=== PATIENT | female | born 1995 | race Hispanic/Latino ===

== ENCOUNTER → 2017-06-28 | Outpatient (CLI) | payer BC ==
--- NOTE | 2017-06-28 16:15 | Diagnostic Imaging Report ---
PROCEDURE:X-RAY ABDOMEN - KUB COMPARISON:None. INDICATIONS:STENT PLACED 3 WEEKS AGO, RIGHT KIDNEY STONE FINDINGS: Medical devices: Right ureteral stent is present without evidence of calculus along the course. Intrauterine device is present in the pelvis. Bowel: The bowel gas pattern is normal. No dilated bowel loops. Calcifications: There are no calcifications over the renal shadows, along the expected course of the left ureter, or in the pelvis. Bones: There is increased calcific density at L5-S1 that could be the result of anterolisthesis. No focal osseous lesions. Soft tissues: Unremarkable. CONCLUSION: 1. No evidence of intrarenal or ureteral calculus by x-ray. 2. Suspected spondylolisthesis of L5-S1. This can be confirmed with lumbar spine series. 3. Medical devices as described above. Dictated by: Jesus Reyes M.D. on 06/28/2017 at 16:15 Electronically approved by: Jesus Reyes M.D. on 06/28/2017 at 16:15
== END ==
LOC: RAD 15:21
PROVIDERS: ATTEND Urology
DX: N13.30 Unspecified hydronephrosis (principal)
CPT/HCPCS: 74018

== ENCOUNTER → 2017-07-18 | Day surgery (SDC) | payer BC ==
[~2017-07-18] MED LIST: CEFAZOLIN SOD 1 GM VIAL ONE; DEXAMETHASONE SOD PHOS INJ 4 MG/ML VIAL ONE; FENTANYL CITRATE/PF 100MCG/2 ML INJ ONE; IOPAMIDOL 610MG/1ML 300 MG/ML VIAL IV ONE; LIDOCAINE HCL 2% LOCAL INJ 5 ML SDV VIAL INJ ONE; MIDAZOLAM HCL 2 MG/2 ML VIAL ONE; ONDANSETRON HCL INJ 2 MG/ML VIAL ONE; ONE DAILY WOME1 EACH; PROPOFOL IV EMULSION 10 MG/ML 20 ML VIAL ONE; SEVOFLURANE INHAL SOLN 250 ML PEN BTL ONE
--- OUTSIDE RECORDS SUMMARY | 2017-07-18 07:40 | XMS REPORT ---
Author Author [facility] Address Unknown Phone Unavailable Care Team Providers Care Casting Carrier Name Role Phone JONATHAN GAN Unavailable Unavailable Problems This patient has no known problems. Allergies, Adverse Reactions, Alerts This patient has no known allergies or adverse reactions. Medications This patient has no known medications. Results Test Description Test Time Test Comments Text Results Atomic Results Result Comments ABDOMEN-1VIEW (KUB) [place] [id number] Patient Name: TRINITY QUIROZ MR #: [id number] : 1995 Age/Sex: 22/F Req #: [id number] Adm Physician: Ordered by: JONATHAN GAN MD Report #: [id number] Location: [facility] Room/Bed: Procedure: [id number] DX/ABDOMEN-1VIEW (KUB) Exam Date: 06/28/17 Exam Time: 1550 REPORT STATUS: Signed PROCEDURE: X-RAY ABDOMEN - KUB COMPARISON: None. INDICATIONS: STENT PLACED 3 WEEKS AGO, RIGHT KIDNEY STONE FINDINGS: Medical devices: Right ureteral stent is present without evidence of calculus along the course. Intrauterine device is present in the pelvis. Bowel: The bowel gas pattern is normal. No dilated bowel loops. Calcifications: There are no calcifications over the renal shadows, along the expected course of the left ureter, or in the pelvis. Bones: There is increased calcific density at L5-S1 that could be the result of anterolisthesis. No focal osseous lesions. Soft tissues: Unremarkable. CONCLUSION: 1. No evidence of intrarenal or ureteral calculus by x-ray. 2. Suspected spondylolisthesis of L5-S1. This can be confirmed with lumbar spine series. 3. Medical devices as described above. Dictated by: Isidro Reyes M.D. on 06/28/2017 at 16:15 Electronically approved by: Isidro Reyes M.D. on 06/28/2017 at 16 :15 Dictated By: ISIDRO REYES MD [id number] Transcribed By: NORBERTO on 06/28/17 1615 COPY TO: JONATHAN GAN MD
--- NOTE | 2017-07-18 15:57 | Operative Report ---
DATE OF PROCEDURE: July 18, 2017 PREOPERATIVE DIAGNOSIS: 1. Right distal ureteral calculus. 2. Presence of stent. 3. Hydronephrosis. OPERATION PERFORMED: 1. Cystoscopy and removal of double J stent from the right side. 2. Right retrograde pyelograms under fluoroscopic control. 3. Right ureteroscopy. 4. Interpretation of x-ray. Radiologist not present. 5. Supervision of fluoroscopy. Radiologist not present. CENTRAL OFFICE OPERATOR: None. ANESTHESIA: General. CLINICAL INDICATION NOTE: This is a 22-year-old patient who was brought for further assessment of nephrolithiasis. She has a stent on the right side and had a distal ureteral calculus. She does have a double J stent. Procedure was discussed with the patient. Potential benefit and complication discussed, explained and accepted. DESCRIPTION OF PROCEDURE AND FINDINGS: After the proper level of anesthesia was achieved, the patient was placed in lithotomy position, prepped and draped in sterile fashion. Urethra inspected, unremarkable. The outlet is normal. Bladder mucosa normal. Double J stent is protruding at the right ureteral orifice, was removed. The open-end catheter inserted, and retrograde pyelograms were done. No definitive stone could be identified. Therefore, a guidewire was kept in place and a flexible ureteroscopy was done. Stones were not identified along the ureter or in the renal pelvis or in the calices. The bladder was then irrigated, and the scope was removed. Patient was transferred in satisfactory condition to recovery room. She will be followed as outpatient. Job#: [id number] MAO
== END | disposition home or self-care (01) ==
LOC: OR 07:38
PROVIDERS: ATTEND Urology
DX: N20.1 Calculus of ureter (principal); N13.30 Unspecified hydronephrosis; Z46.6 Encounter for fitting and adjustment of urinary device
CPT/HCPCS: 52351; 74420; 81025; J0690; J1100; J2001; J2250; J2405; Q9967